=== PATIENT | female | born 1955 | race Caucasian/White ===

== ENCOUNTER → 2024-11-24 | Outpatient (CLI) | payer MEDICARE ==
--- NOTE | 2024-11-24 10:46 | HMCIMG ---
KNEE BILATERAL STANDING HISTORY: Right knee pain COMPARISON: None TECHNIQUE: 3 images of bilateral knees were obtained with weightbearing. FINDINGS: Total right knee replacement changes are seen. Vascular calcifications are seen. There is no acute displaced fracture or dislocation. Degenerative changes are seen. IMPRESSION: 1. Findings as described above.
--- NOTE | 2024-11-24 10:46 | HMCIMG ---
LUMBAR SPINE 2-3VWS HISTORY: Low back pain COMPARISON: None FINDINGS: Images of lumbar spine were obtained. Postlaminectomy changes are seen. Orthopedic fixation plates and screws are seen traversing the L4 and L5. Disc fusion is seen at L4-5 level with anterior protrusion of the disc. Clinical correlation is recommended. There is straightening of normal lordotic curvature which may be related to muscle spasm or positioning. No loss of vertebral height is seen. No fracture or dislocation is seen. Degenerative changes are seen. IMPRESSION: 1. No fracture is seen. DJD with postop changes.
== END | disposition home or self-care (01) ==
LOC: RAH 09:41
PROVIDERS: ATTEND Nurse Practitioner Family
DX: M47.816 Spondylosis without myelopathy or radiculopathy, lumbar region (principal); M17.11 Unilateral primary osteoarthritis, right knee; M43.26 Fusion of spine, lumbar region; M25.861 Other specified joint disorders, right knee; M23.91 Unspecified internal derangement of right knee; Z98.890 Other specified postprocedural states
CPT/HCPCS: 72100; 73565; 73560